=== PATIENT | female | born 1985 | race Caucasian/White ===

== ENCOUNTER → 2017-10-04 | Outpatient (CLI) | payer OTHER ==
[2017-10-04 09:50] LABS: Basophils # (A) 0.1 k/uL (0-0.2); Basophils % (A) 1 %; Eosinophils # (A) 0.5 k/uL (0-0.7); Eosinophils % (A) 9 %; HCT 45.7 % (34.0-46.0); HGB 14.6 gm/dL (11.4-16.0); Lymphocytes # (A) 1.8 k/uL (1.0-4.8); Lymphocytes % (A) 35 %; MCH 29.6 pg (25.0-35.0); MCHC 31.9 g/dL (31.0-37.0); MCV 92.9 fL (80.0-100.0); Monocytes # (A) 0.3 k/uL (0-1.0); Monocytes % (A) 6 %; Neutrophils # (A) 2.3 k/uL (1.3-7.7); Neutrophils % (A) 46 %; Platelet Count 233 k/uL (150-450); RBC 4.92 m/uL (3.80-5.40); RDW 12.2 % (11.5-15.5); WBC 5.1 k/uL (3.8-10.6)
[2017-10-04 09:56] LABS: ALT 73 U/L (9-52); AST 57 U/L (14-36); Albumin 4.2 g/dL (3.5-5.0); Alkaline Phosphatase 41 U/L (38-126); Amylase 90 U/L (30-110); Anion Gap 6 mmol/L; Blood Urea Nitrogen 8 mg/dL (7-17); Calcium 9.4 mg/dL (8.4-10.2); Carbon Dioxide 28 mmol/L (22-30); Chloride 104 mmol/L (98-107); Cholesterol 200 mg/dL (<200); Glucose 92 mg/dL (74-99); HDL Cholesterol 102 mg/dL (40-60); LDL Cholesterol,Calculated 81 mg/dL (0-99); Lipase 60 U/L (23-300); Potassium 4.6 mmol/L (3.5-5.1); Sodium 138 mmol/L (137-145); Total Bilirubin 0.6 mg/dL (0.2-1.3); Triglycerides 84 mg/dL (<150)
[2017-10-06 14:04] LABS: Gliadin AB IgA, Unit <0.2 U/mL
[2017-10-07 10:18] LABS: Candida albicans IgE Class CLASS 0; Casein IgE Class CLASS 0; Gluten IgE Class CLASS 0
== END | disposition home or self-care (01) ==
LOC: LABWHC1 08:59
PROVIDERS: ATTEND Family Medicine
DX: Z00.00 Encounter for general adult medical examination without abnormal findings (principal); R14.0 Abdominal distension (gaseous)
CPT/HCPCS: 36415; 80053; 80061; 82150; 82785; 83516; 83690; 84443; 85025; 86003

== ENCOUNTER → 2018-04-16 | Outpatient (CLI) | payer OTHER ==
--- NOTE | 2018-04-16 18:42 | ECHOF ---
Referral Reason:Bradycardia R00.1 MEASUREMENTS -------- HEIGHT: 162.6 cm WEIGHT: 65.8 kg BP: IVSd: 0.9 cm (0.6 - 1.1) LVIDd: 4.2 cm (3.9 - 5.3) LVPWd: 1.2 cm (0.6 - 1.1) IVSs: 1.4 cm LVIDs: 3.0 cm LVPWs: 1.5 cm RVIDd: 2.6 cm (< 3.3) LAESV Index (A-L): 28.17 ml/m Ao Diam: 2.5 cm (2.0 - 3.7) LA Diam: 2.5 cm (2.7 - 3.8) AV Cusp: 1.8 cm (1.5 - 2.6) EPSS: 0.3 cm MV E Dze: 1.33 m/s MV DecT: 237 ms MV A Dez: 0.54 m/s MV E/A Ratio: 2.44 RAP: 10.00 mmHg RVSP: 25.50 mmHg MV EF SLOPE: 148.90 mm/s (70 - 150) MV EXCURSION: 1.97 cm (> 18.000) FINDINGS -------- Sinus rhythm. This was a technically good study. The left ventricular size is normal. Left ventricular wall thickness is normal. Overall left vent ricular systolic function is normal with, an EF between 55 - 60 %. The right ventricle is normal in size and function. LA is midly dilated 29-33ml/m2. The right atrium is normal in size. The aortic valve is trileaflet, and appears structurally normal. No aortic stenosis or regurgitation. The mitral valve is normal. There is trace to mild mitral regurgitation. Trace tricuspid regurgitation present. Right ventricular systolic pressure is normal at < 35 mmHg. There is no evidence of pulmonary hypertension. The pulmonic valve is normal. The aortic root size is normal. The IVC is dilated with normal collapse. There is no pericardial effusion. CONCLUSIONS -------- 1. Sinus rhythm. 2. This was a technically good study. 3. The left ventricular size is normal. 4. Left ventricular wall thickness is normal. 5. Overall left ventricular systolic function is normal with, an EF between 55 - 60 %. 6. LA is midly dilated 29-33ml/m2. 7. The aortic valve is trileaflet, and appears structurally normal. No aortic stenosis or regurgitati on. 8. There is trace to mild mitral regurgitation. 9. Trace tricuspid regurgitation present. 10. Right ventricular systolic pressure is normal at < 35 mmHg. 11. There is no evidence of pulmonary hypertension. 12. The aortic root size is normal. 13. The IVC is dilated with normal collapse. 14. There is no pericardial effusion. [employer] ARTIST: Cholo Miranda RDCS
== END | disposition home or self-care (01) ==
LOC: RADECHMAIN 15:35
PROVIDERS: ATTEND Family Medicine
DX: R00.1 Bradycardia, unspecified (principal)
CPT/HCPCS: 93306

== ENCOUNTER → 2018-04-20 | Outpatient (CLI) | payer OTHER | END | disposition home or self-care (01) | LOC: RADECHMAIN 12:23 | PROVIDERS: ATTEND Family Medicine | DX: R00.0 Tachycardia, unspecified (principal); R00.1 Bradycardia, unspecified | CPT/HCPCS: 93270; 93271 ==

== ENCOUNTER → 2018-10-14 | Outpatient (CLI) | payer BC, OTHER ==
[2018-10-14 08:26] LABS: Basophils # (A) 0.1 k/uL (0-0.2); Basophils % (A) 2 %; Eosinophils # (A) 0.3 k/uL (0-0.7); Eosinophils % (A) 5 %; HCT 41.4 % (34.0-46.0); HGB 14.1 gm/dL (11.4-16.0); Lymphocytes # (A) 1.9 k/uL (1.0-4.8); Lymphocytes % (A) 34 %; MCH 30.4 pg (25.0-35.0); MCHC 33.9 g/dL (31.0-37.0); MCV 89.6 fL (80.0-100.0); Mean Platelet Volume 7.2; Monocytes # (A) 0.4 k/uL (0-1.0); Monocytes % (A) 7 %; Neutrophils # (A) 2.9 k/uL (1.3-7.7); Neutrophils % (A) 51 %; Platelet Count 239 k/uL (150-450); RBC 4.62 m/uL (3.80-5.40); RDW 12.8 % (11.5-15.5); WBC 5.8 k/uL (3.8-10.6)
[2018-10-14 18:55] LABS: ALT 16 U/L (8-44); AST 19 U/L (13-35); Albumin/Globulin Ratio 2.44 (1.20-2.10); Alkaline Phosphatase 49 U/L (41-126); Chloride 108 mmol/L (96-109); Cholesterol 161 mg/dL (0-200); Globulin 1.8 g/dL (1.6-3.3); Glucose 87 mg/dL (70-110); Potassium 4.1 mmol/L (3.5-5.5); Sodium 141 mmol/L (135-145); Total Bilirubin 0.6 mg/dL (0.3-1.2); Total Protein 6.2 g/dL (6.2-8.2); Triglycerides <50.0 mg/dL (0.0-149.0); VLDL Calculation 9.98 mg/dL (5.00-40.00)
== END | disposition home or self-care (01) ==
LOC: LABWHC1 07:52
PROVIDERS: ATTEND Family Medicine
DX: Z00.00 Encounter for general adult medical examination without abnormal findings (principal)
CPT/HCPCS: 36415; 80053; 80061; 84443; 85025

== ENCOUNTER → 2018-10-27 | Outpatient (CLI) | payer OTHER ==
--- NOTE | 2018-10-27 09:28 | US ---
EXAMINATION TYPE: US liver DATE OF EXAM: 10/27/2018 COMPARISON: NONE CLINICAL HISTORY: R74.8 Abnormal levels of other serum enzymes. EXAM MEASUREMENTS: Liver Length: 12.6 cm Gallbladder Wall: 0.3 cm CBD: 0.3 cm Right Kidney: 10.2 x 4.9 x 6.0 cm Pancreas: visualized portions wnl Liver: wnl Gallbladder: No stones seen Evidence for sonographic Zambrano's sign: No CBD: wnl Right Kidney: No hydronephrosis or masses seen Visualized pancreas is homogeneous without focal mass or ductal dilatation. IVC is visualized near he patic dome. Visualized liver is homogeneous without intrahepatic mass or hepatic ductal dilatation. G allbladder is seen without shadowing mobile gallstones or abnormal wall thickening. Common bile duct measures within normal limits. Limited images right kidney show no gross hydronephrosis. IMPRESSION: No worrisome intrahepatic mass or intrahepatic ductal dilatation is seen.
== END ==
LOC: RADUSWWP 08:55
PROVIDERS: ATTEND Family Medicine
DX: R74.8 Abnormal levels of other serum enzymes (principal)
CPT/HCPCS: 76705

== ENCOUNTER → 2022-01-14 | Outpatient (CLI) | payer OTHER ==
[2022-01-14 14:42] LABS: Basophils # (A) 0.06 X 10*3/uL (0.00-0.10); Eosinophils # (A) 0.37 X 10*3/uL (0.04-0.35); Eosinophils % (A) 5.9 %; HCT 44.4 % (37.2-46.3); HGB 14.2 g/dL (12.0-15.0); Immature Grans, Automated 0.3 %; Lymphocytes # (A) 1.72 X 10*3/uL (0.90-5.00); Lymphocytes % (A) 27.7 %; MCH 29.7 pg (27.0-32.0); MCV 92.9 fL (80.0-97.0); Mean Platelet Volume 10.5 fL (9.5-12.2); Monocytes # (A) 0.64 X 10*3/uL (0.20-1.00); Monocytes % (A) 10.3 %; NRBC Per 100 WBC 0 /100 WBCS (0.0-0.0); Neutrophils # (A) 3.41 X 10*3/uL (1.80-7.70); Neutrophils % (A) 54.8 %; Platelet Count 269 X 10*3/uL (140-440); RBC 4.78 X 10*6/uL (4.10-5.20); RDW 12.7 % (11.5-14.5); WBC 6.22 X 10*3/uL (4.50-10.00)
== END | disposition home or self-care (01) ==
LOC: LABPAT 08:29
PROVIDERS: ATTEND Obstetrics & Gynecology
DX: Z01.812 Encounter for preprocedural laboratory examination (principal); N93.8 Other specified abnormal uterine and vaginal bleeding; N84.0 Polyp of corpus uteri
CPT/HCPCS: 85025

== ENCOUNTER 2022-01-21 06:18 | Day surgery (SDC) | payer OTHER ==
[2022-01-17 12:03] VITALS: BMI 27.4
[~2022-01-21 06:18] MED LIST: DEXAMETHASONE SOD PHOSPHATE 4 MG/ML 1 ML VIAL IV ONE; LACTATED RINGERS 1,000 ML IV SCH; ONDANSETRON 4 MG/2 ML VIAL IVP ONE; Pre Op ABX Message 1 EACH MISC MISCELLANE ONE
[2022-01-21 06:57] VITALS: RESP 16
[2022-01-21] MEDS ORDERED: MORPHINE SULFATE 4 MG/ML SYRINGE IV PRN (07:00)
[2022-01-21] MEDS ORDERED: LIDOCAINE 1% (10MG/ML) FOR IV START INTRADERMA ONE (07:06)
[2022-01-21] MEDS ORDERED: PROPOFOL 10 MG/ML 20 ML VIAL IV ONE (07:39)
[2022-01-21] MEDS ORDERED: MIDAZOLAM 2 MG/2 ML VIAL ONE (07:39)
[2022-01-21] MEDS ORDERED: LIDOCAINE 1% INJ 10MG/ML (20 ML MDV) ONE (07:39)
[2022-01-21] MEDS ORDERED: KETOROLAC 15 MG/ML 1 ML VIAL ONE (07:39)
[2022-01-21] MEDS ORDERED: fentaNYL (PF) 50 MCG/ML 2 ML AMP ONE (07:39)
[2022-01-21] MEDS ORDERED: SORBITOL 3% IRRIGATION 3,000 ML IRRIGATION ONE (08:01)
[2022-01-21] MEDS ORDERED: SIMETHICONE 80 MG CHEWABLE PO PRN (08:14)
[2022-01-21] MEDS ORDERED: KETOROLAC 15 MG/ML 1 ML VIAL IVP PRN (08:14)
[2022-01-21] MEDS ORDERED: METOCLOPRAMIDE 5 MG/ML 2 ML VIAL IVP PRN (08:14)
[2022-01-21] MEDS ORDERED: IBUPROFEN 600 MG TAB PO PRN (08:14)
[2022-01-21] MEDS ORDERED: ONDANSETRON 4 MG/2 ML VIAL IVP PRN (08:14)
[2022-01-21] MEDS ORDERED: diphenhydrAMINE 50 MG/ML 1 ML VIAL IVP PRN (08:14)
[2022-01-21] MEDS ORDERED: Acetaminophen-Codeine 300-30mg TAB PO PRN ×2 (08:14)
[2022-01-21] MEDS ORDERED: LACTATED RINGERS 1,000 ML IV SCH (08:15)
--- NOTE | 2022-01-21 08:21 | P.OP ---
Date of Procedure: 01/21/22 Preoperative Diagnosis: #1. Dysfunctional uterine bleeding #2. Probable endometrial polyp Postoperative Diagnosis: Same Procedure(s) Performed: #1. Diagnostic hysteroscopy #2. Endometrial polypectomy 3. Dilation and curettage Anesthesia: other (Gen. by face mask) Surgeon: Sukh Robles Estimated Blood Loss (ml): 5 IV fluids (ml): 300 Urine output (ml): 40 Pathology: other (Endometrial curettings with probable endometrial polyp) Condition: stable Disposition: PACU Operative Findings: Preoperative pelvic examination demonstrated a 4-5 week slightly retroverted mobile normal shaped uterus with normal adnexa bilaterally. Intraoperatively, the uterus sounded to approximately 8 cm. A small polyp was seen originating from the posterior fundal portion of the endometrium and appeared to have been completely removed with polyp forceps. The bilateral tubal ostia were seen. Otherwise there was not a significant amount of endometrial tissue removed and the typical gritty texture was encountered throughout the endometrial cavity. Description of Procedure: The patient was prepped and draped in usual fashion after general anesthesia was in this or by the anesthesiologist. A weighted speculum was placed in the bladder draining approximate 40 mL of clear patrick urine. The anterior lip of the cervix was grasped with a single-tooth tenaculum and the uterus sounded to 8 cm as noted above. Serial dilation was carried out to admit the diagnostic hysteroscope which was placed into the uterus and the cavity distended with sorbitol. The findings were as noted above with no significant pathology though there was thought to be a polypoid structure originating from the posterior fundal portion of the uterus. There was some difficulty secondary to some blood floating in the matrix which did not clear with further irrigation. The bilateral tubal ostia were seen. The scope was removed and set aside and a polyp forceps introduced and the cavity which was utilized to remove what appeared to be a roughly 78 mm polyp from the posterior fundal portion of the uterus. A medium sharp curette was introduced and the uterus thoroughly curetted circumferentially onto a Telfa placed in the vagina with minimal tissue returned and the typical gritty texture encountered throughout. The specimen was then passed for pathology and all instrumentation removed. There is no significant ongoing bleeding from either the tenaculum site or the cervix itself. Estimated blood loss for the case is approximately 5 mL or less. There were no complications. All sponge, instrument, needle counts were correct. The patient tolerated the procedure well and proceeded to the recovery room in stable condition.
[2022-01-21 08:23] VITALS: TEMP 99.3
[2022-01-21 08:49] VITALS: PULSE 66
[2022-01-21 09:07] VITALS: BP 112/73
== END 2022-01-21 09:27 | disposition home or self-care (01) ==
LOC: OR 06:18
PROVIDERS: ATTEND Obstetrics & Gynecology
DX: N93.9 Abnormal uterine and vaginal bleeding, unspecified (principal); Z88.0 Allergy status to penicillin; Z88.8 Allergy status to other drugs, medicaments and biological substances
CPT/HCPCS: 58558; 81025; 88305; J2250; J2270; J1100; J2405; J2001; J3010; J1885; J2704

== ENCOUNTER → 2023-01-17 | Outpatient (CLI) | payer OTHER ==
[2023-01-17 15:15] LABS: Basophils # (A) 0.07 X 10*3/uL (0.00-0.10); Basophils % (A) 1.2 %; Eosinophils # (A) 0.19 X 10*3/uL (0.04-0.35); Eosinophils % (A) 3.2 %; HCT 42.2 % (37.2-46.3); HGB 13.8 g/dL (12.0-15.0); Immature Grans, Automated 0.2 %; Lymphocytes # (A) 1.69 X 10*3/uL (0.90-5.00); Lymphocytes % (A) 28.5 %; MCH 28.9 pg (27.0-32.0); MCHC 32.7 g/dL (32.0-37.0); MCV 88.5 fL (80.0-97.0); Mean Platelet Volume 10.4 fL (9.5-12.2); Monocytes # (A) 0.59 X 10*3/uL (0.20-1.00); Monocytes % (A) 9.9 %; NRBC Per 100 WBC 0 /100 WBCS (0.0-0.0); Neutrophils # (A) 3.38 X 10*3/uL (1.80-7.70); Platelet Count 273 X 10*3/uL (140-440); RBC 4.77 X 10*6/uL (4.10-5.20); RDW 12.1 % (11.5-14.5); WBC 5.93 X 10*3/uL (4.50-10.00)
[2023-01-17 15:57] LABS: ALT 10 U/L (8-44); AST 12 U/L (13-35); African American GFR (CKD) 134.4 (60.0-200.0); Albumin 4.3 g/dL (3.8-4.9); Albumin/Globulin Ratio 1.77 (1.60-3.17); Alkaline Phosphatase 48 U/L (41-126); BUN/Creat Ratio 11.88 Ratio (12.00-20.00); Blood Urea Nitrogen 7.4 mg/dL (9.0-27.0); Calcium 9.4 mg/dL (8.7-10.3); Carbon Dioxide 24.7 mmol/L (20.0-27.5); Chloride 105 mmol/L (96-109); Chol/HDL Ratio 2.61 Ratio; Globulin 2.4 g/dL (1.6-3.3); Glucose 88 mg/dL (70-110); LDL Cholesterol,Calculated 93.4 mg/dL (0.0-131.0); Non-African American GFR(CKD) 115.9 (60.0-200.0); Potassium 4.5 mmol/L (3.5-5.5); Sodium 140 mmol/L (135-145); Total Protein 6.7 g/dL (6.2-8.2)
== END | disposition home or self-care (01) ==
LOC: LABWHC1 08:19
PROVIDERS: ATTEND Nurse Practitioner Adult Health
DX: Z00.00 Encounter for general adult medical examination without abnormal findings (principal); Z13.1 Encounter for screening for diabetes mellitus
CPT/HCPCS: 36415; 80053; 80061; 83036; 84439; 84443; 85025